=== PATIENT | female | born 1965 | race African-American/Black ===

== ENCOUNTER → 2021-03-30 | Day surgery (SDC) | payer MEDICAID ==
[~2021-03-30] VITALS: Ht 175.3 cm; Wt 93.0 kg
[~2021-03-30] MED LIST: ACETYLCHOLINE CHLORIDE INTRAOCULAR SOLUTION 1:100 ELECTROLYTE DILUENT IO ONE; BALANCED SALT IRRIG SOLN 15ML ONE; BALANCED SALT IRRIG SOLN COMB1 500ML OP NR; CIPROFLOXACIN 0.3% OPHTH SOLN 2.5ML ONE; CYCLOPENTOLATE HCL 1% OPHTH DROPS 2ML LEFTEYE ONE; CYCLOPENTOLATE HCL 1% OPHTH DROPS 2ML ONE; FENTANYL CITRATE/PF 50MCG/ML 2ML VIAL ONE; HYALURONATE SODIUM 10 MG/ML 0.55ML SYRINGE IO ONE; KETOROLAC 30MG/ML VIAL ONE; LACTATED RINGERS 1,000 ML IV SCH; LIDOCAINE HCL/PF 2% 20 MG/ML 10ML VIAL ONE; MIDAZOLAM HCL 2 MG/2 ML VIAL ONE; NEO/POLYMYX B SULF/DEXAMETH OPHTH OINT 3.5GM ONE; PHENYLEPHRINE HCL 10% OPHTH DROPS 5ML LEFTEYE ONE; PHENYLEPHRINE HCL 10% OPHTH DROPS 5ML ONE; PREDNISOLONE ACETATE 1% OPHTH DROPS 5ML ONE; TETRACAINE 0.5% OPHTH DROPS 4ML ONE; TRAN650T5 PO; TROPICAMIDE 1% OPHTH DROPS 15ML LEFTEYE ONE; TROPICAMIDE 1% OPHTH DROPS 15ML ONE
[2021-03-30 07:46] LABS: BASOPHILS % 1.1 % (0.0-2.0); EOSINOPHILS % 3.5 % (0.0-5.0); HEMATOCRIT. 38.8 % (36.0-48.0); HEMOGLOBIN. 12.7 g/dL (12.0-16.0); LYMPHOCYTES % 26.2 % (20.0-50.0); MEAN CORPUSCULAR HEMOGLOBIN 28.6 pg (28.0-32.0); MEAN CORPUSCULAR VOLUME 87.4 fL (81.0-99.0); MEAN PLATELET VOLUME 9.3 fl (7.4-10.4); MONOCYTES % 8.5 % (2.0-8.0); NEUTROPHILS % 60.7 % (40.0-76.0); PLATELET 248 x1000/uL (130-400); RED BLOOD CELL COUNT 4.43 mill/uL (4.2-5.4); RED CELL DISTRIBUTION WIDTH 13.4 % (11.6-14.6)
[2021-03-30 07:51] LABS: CHLORIDE 111 mEq/L (98-107)
== END | disposition home or self-care (01) ==
LOC: OR 06:01 → EDSEX 09:30
PROVIDERS: ATTEND Ophthalmology
DX: H25.89 Other age-related cataract (principal); E78.00 Pure hypercholesterolemia, unspecified; E66.9 Obesity, unspecified; Z79.899 Other long term (current) drug therapy; Z98.890 Other specified postprocedural states; Z20.822 Contact with and (suspected) exposure to COVID-19
CPT/HCPCS: 36415; 66982; 80048; 85025; 87426; 93005; J1885; J2250; J3010; J3490

== ENCOUNTER → 2021-04-13 | Day surgery (SDC) | payer MEDICAID ==
[~2021-04-13] VITALS: Ht 175.3 cm; Wt 93.0 kg
[~2021-04-13] MED LIST changes: -BALANCED SALT IRRIG SOLN COMB1 500ML OP NR; +BALANCED SALT IRRIG SOLN COMB1 500ML OP ONE; -CYCLOPENTOLATE HCL 1% OPHTH DROPS 2ML LEFTEYE ONE; +CYCLOPENTOLATE HCL 1% OPHTH DROPS 2ML RIGHTEYE NR; -HYALURONATE SODIUM 10 MG/ML 0.55ML SYRINGE IO ONE; -KETOROLAC 30MG/ML VIAL ONE; -MIDAZOLAM HCL 2 MG/2 ML VIAL ONE; -NEO/POLYMYX B SULF/DEXAMETH OPHTH OINT 3.5GM ONE; -PHENYLEPHRINE HCL 10% OPHTH DROPS 5ML LEFTEYE ONE; +PHENYLEPHRINE HCL 10% OPHTH DROPS 5ML RIGHTEYE NR; -TETRACAINE 0.5% OPHTH DROPS 4ML ONE; -TROPICAMIDE 1% OPHTH DROPS 15ML LEFTEYE ONE; +TROPICAMIDE 1% OPHTH DROPS 15ML RIGHTEYE NR
== END | disposition home or self-care (01) ==
LOC: OR 06:19
PROVIDERS: ATTEND Ophthalmology
DX: H25.89 Other age-related cataract (principal); E78.00 Pure hypercholesterolemia, unspecified; Z20.822 Contact with and (suspected) exposure to COVID-19; Z79.899 Other long term (current) drug therapy; Z98.890 Other specified postprocedural states; Z88.8 Allergy status to other drugs, medicaments and biological substances
CPT/HCPCS: 66984; 87426; J3010; J3490; V2632